=== PATIENT | female | born 1990 ===

== ENCOUNTER 2025-03-13 05:00 | Outpatient (RCR) | payer OTHER, MEDICAID, SELFPAY | END 2025-04-11 23:59 | disposition home or self-care (01) | LOC: SPT 05:00 | PROVIDERS: Visit Provider Emergency Medicine Emergency Medical Services | DX: R26.9 Unspecified abnormalities of gait and mobility (principal); M19.90 Unspecified osteoarthritis, unspecified site | CPT/HCPCS: 97140; 97162; 97530 ==

== ENCOUNTER 2025-04-12 05:00 | Outpatient (RCR) | payer OTHER, SELFPAY | END 2025-05-12 23:59 | disposition home or self-care (01) | LOC: SPT 05:00 | PROVIDERS: Visit Provider Emergency Medicine Emergency Medical Services | DX: R26.9 Unspecified abnormalities of gait and mobility (principal); M19.90 Unspecified osteoarthritis, unspecified site | CPT/HCPCS: 97140; 97530 ==